=== PATIENT | male | born 1980 | race Caucasian/White ===

== ENCOUNTER 2025-05-04 06:50 | Outpatient (CLI) | payer BC ==
[2025-05-04 07:18] LABS: MEAN PLATELET VOLUME 7.5 FL (7.4-10.4); RED CELL DISTRIBUTION WIDTH 14.1 % (11.5-14.5)
[2025-05-04 07:56] LABS: CHOL/HDL RATIO 3.1 (0.00-4.99); CREATININE 0.90 MG/DL (0.60-1.10); LDL CHOLESTEROL 112 MG/DL (50-100); TOTAL CARBON DIOXIDE 28.3 MMOL/L (24-32); eGFR > 90 ML/MIN
== END 2025-05-04 23:59 | disposition home or self-care (01) ==
LOC: RAD 06:50
PROVIDERS: ATTEND Nurse Practitioner Family
DX: Z13.220 Encounter for screening for lipoid disorders (principal); Z76.89 Persons encountering health services in other specified circumstances; Z13.1 Encounter for screening for diabetes mellitus
CPT/HCPCS: 36415; 80053; 80061; 83036; 85025